=== PATIENT | female | born 1980 | race Caucasian/White ===

== ENCOUNTER 2017-10-01 05:54 | Day surgery (SDC) | payer OTHER ==
[~2017-10-01] VITALS: Ht 170.2 cm; Wt 131.5 kg
[~2017-10-01 05:54] MED LIST: ACCOLATE10 MG PO; ACCOLATE20 MG PO; ADVAIR 250/501 DISK IH; ALPRAZOLAM1 MG PO; AMOX TR-K CLV1 EAC4 PO; AUGMENTIN875 MG PO; CLEOCIN300 MG PO; COMBIVENT RESPIM4 GM IH; COMBIVENT200 INHALA IH; DILAUDID2 MG PO; DULERA 200 MCG/13 GM IH; DUONEB 2.5-0.5 M3 ML IH; DUONEB3 ML IH; ENDOCET 5-3251 EACH PO; FLONASE ALLERG9.9 ML BOTH NARES; FLONASE16 G1 BOTH NARES; HYDROCODON-ACE1 EAC7 PO; IBUPROFEN800 MG PO; INDOCIN25 MG PO; IPRATR-ALBUTEROL3 ML IH; LUVOX50 MG PO; METHADONE 22 MG/1 ML PO; METHADONE HCL40 MG PO; METHADONE10 MG PO; METHADOSE10 MG PO; NAPROXEN500 MG PO; PERCOCET 5/31 TABLET PO; PREDNISONE10 MG PO; PREDNISONE20 MG PO; PRENATAL TABLE1 EAC3 PO; PROAIR HFA8.5 GM IH; PROVENTIL,2.5 MG/3 M IH; PROVENTIL17 GM IH; THEOPHYLLINE A300 M1 PO; TORADOL10 MG PO; TYLENOL EXTRA500 MG PO; TYLENOL WITH C1 EACH PO; ULTRACET1 TABLET PO; VIBRAMYCIN100 MG PO; XANAX0.5 MG PO; XANAX2 MG PO; ZITHROMAX250 MG PO; ZOFRAN4 MG PO
[2017-10-01] MEDS ORDERED: COMBIVENT RESPIM4 GM IH (06:34)
[2017-10-01 06:38] VITALS: BP 133/85
[2017-10-01 09:35] VITALS: BP 147/85
[2017-10-01 11:10] VITALS: BP 142/67
== END 2017-10-01 10:50 | disposition home or self-care (01) ==
LOC: SDC 05:54
PROC: 0UBM0ZZ Excision of Vulva, Open Approach (ICD-10-PCS; principal; 2017-10-01)
DX: D07.1 Carcinoma in situ of vulva (principal); J45.909 Unspecified asthma, uncomplicated; F41.9 Anxiety disorder, unspecified; E66.01 Morbid (severe) obesity due to excess calories; F17.210 Nicotine dependence, cigarettes, uncomplicated; Z68.42 Body mass index [BMI] 45.0-49.9, adult
CPT/HCPCS: 87641; 88305; J0131; J1100; J1170; J1885; J2250; J2405; J3010; S0020